=== PATIENT | male | born 1990 | race Two or more races ===

== ENCOUNTER 2016-10-19 10:44 | Observation (INO) | payer MEDICAID ==
[~2016-10-19] VITALS: Ht 175.3 cm; Wt 72.6 kg
[2016-10-19 11:50] LABS: Basophils # (auto) 0 uL; Basophils % (auto) 0.6 % (0.0-2.0); Eosinophils # (auto) 0.1 uL; Eosinophils % (auto) 1.5 % (0.0-7.0); Hematocrit 43.5 % (41.0-53.0); Hemoglobin 14.7 g/dL (13.5-17.5); Lymphocytes # (auto) 1.4 uL; Lymphocytes % (auto) 19.9 % (10.0-50.0); Mean Corpuscular Hemoglobin 30.6 pg (28.0-32.0); Mean Corpuscular Hgb Conc. 33.7 g/dL (32.0-36.0); Mean Corpuscular Volume 90.7 fL (80.0-100.0); Mean Platelet Volume 8.3 fL (7.4-10.4); Monocytes # (auto) 0.3 uL; Monocytes % (auto) 3.6 % (0.0-12.0); Neutrophils # (auto) 5.1 uL; Neutrophils % (auto) 74.4 % (37.0-80.0); Platelet Count (auto) 332 10^3/uL (140-450); White Blood Cell 6.9 10^3/uL (4.4-10.8)
[2016-10-19 12:01] LABS: Salicylate < 1.7 mg/dL (2.8-20.0)
[2016-10-19 12:09] LABS: Albumin 3.8 g/dL (3.4-5.0); BUN/Creatinine Ratio 12.2; Bilirubin, Total 0.2 mg/dL (0.2-1.0); Calcium 8.9 mg/dL (8.5-10.1); Potassium 4.4 mmol/L (3.5-5.1); Total Protein 7.8 g/dL (6.4-8.2)
[2016-10-19 12:17] LABS: Urine Bilirubin Negative (Negative); Urine Blood Negative /uL (Negative); Urine Color Yellow (Yellow); Urine Glucose Normal (Normal); Urine Ketone Negative (Negative); Urine Nitrite Negative (Negative); Urine RBC <1 /hpf (0 - 3); Urine Urobilinogen Normal (Negative)
[2016-10-19 12:23] LABS: Acetaminophen 58.7 ug/mL (10-30)
[2016-10-19] MEDS ORDERED: ACETYLCYSTEINE 200MG/ML IV SOL 10,900 MG in D5W 5% 250 ML IV ONE (13:00)
[2016-10-19] MEDS ORDERED: ACETYLCYSTEINE 200MG/ML IV SOL 3,600 MG in D5W 5% 500 ML IV ONE (14:00)
[2016-10-19 16:54] LABS: Albumin 3.5 g/dL (3.4-5.0); Bilirubin, Direct 0.1 mg/dL (0-0.2); Bilirubin, Total 0.3 mg/dL (0.2-1.0); Total Protein 7.3 g/dL (6.4-8.2)
[2016-10-19 17:15] LABS: INR 1.11 (0.9-1.15); Prothrombin Time 11.4 sec (9.37-12.3)
[2016-10-19] MEDS ORDERED: ACETYLCYSTEINE 200MG/ML IV SOL 7,300 MG in D5W 5% 1,000 ML IV SCH (18:00)
[2016-10-20] MEDS: ACETYLCYSTEINE 200MG/ML IV SOL 7,300 MG in D5W 5% 1,000 ML IV SCH (10:16)
[2016-10-21] MEDS ORDERED: ACETYLCYSTEINE 200MG/ML IV SOLN 30ML IV ONE (02:47)
[2016-10-21] MEDS: ACETYLCYSTEINE 200MG/ML IV SOL 7,300 MG in D5W 5% 1,000 ML IV SCH (03:05)
[2016-10-21 09:04] LABS: INR 1.12 (0.9-1.15); Prothrombin Time 11.5 sec (9.37-12.3)
[2016-10-21 09:14] LABS: Albumin 3.7 g/dL (3.4-5.0); Bilirubin, Direct 0.1 mg/dL (0-0.2); Bilirubin, Total 0.3 mg/dL (0.2-1.0); Total Protein 7.7 g/dL (6.4-8.2)
[2016-10-23 07:49] VITALS: BP 138/77
== END 2016-10-23 08:43 | disposition home or self-care (01) | DRG 812 ==
LOC: EDBD 10:44 → EDUNIT# 10:44 → ER 10:45 → OVERFLOW 12:20 → ER 10-23 08:43
PROVIDERS: ADMIT Emergency Medicine; ATTEND Emergency Medicine
DX: T39.1X2A Poisoning by 4-Aminophenol derivatives, intentional self-harm, initial encounter (principal); G92 Toxic encephalopathy; Y92.89 Other specified places as the place of occurrence of the external cause; F10.120 Alcohol abuse with intoxication, uncomplicated; F19.10 Other psychoactive substance abuse, uncomplicated; F32.1 Major depressive disorder, single episode, moderate
CPT/HCPCS: 36415; 80053; 80076; 80320; 80329; 81001; 85025; 85610; 93005; 96365; 96366; 99285; G0378; G0434; J0132; J7060; J7070

== ENCOUNTER 2017-06-16 20:29 | Emergency (ER) | payer MEDICAID ==
[~2017-06-16] VITALS: Ht 175.3 cm; Wt 77.1 kg
[2017-06-16 20:41] VITALS: BP 165/91
== END 2017-06-16 23:49 | disposition left against medical advice (07) ==
LOC: ER 20:29
DX: R07.9 Chest pain, unspecified (principal); Z53.21 Procedure and treatment not carried out due to patient leaving prior to being seen by health care provider

== ENCOUNTER 2017-06-17 15:21 | Emergency (ER) | payer MEDICAID ==
[~2017-06-17] VITALS: Ht 175.3 cm; Wt 79.4 kg
[2017-06-17 17:18] VITALS: BP 135/80
== END 2017-06-17 17:31 | disposition home or self-care (01) ==
LOC: ER 15:21
DX: J20.9 Acute bronchitis, unspecified (principal); F17.210 Nicotine dependence, cigarettes, uncomplicated; F41.9 Anxiety disorder, unspecified; R07.9 Chest pain, unspecified

== ENCOUNTER 2017-06-23 19:39 | Emergency (ER) | payer MEDICAID ==
[~2017-06-23] VITALS: Ht 175.3 cm; Wt 79.4 kg
[2017-06-23 20:05] VITALS: BP 144/86
== END 2017-06-23 21:45 | disposition home or self-care (01) ==
LOC: ER 19:39
DX: R09.81 Nasal congestion (principal); F17.210 Nicotine dependence, cigarettes, uncomplicated; R07.9 Chest pain, unspecified; Z01.89 Encounter for other specified special examinations
CPT/HCPCS: 71010; 93005

== ENCOUNTER 2017-12-20 19:59 | Emergency (ER) | payer SELFPAY ==
[~2017-12-20] VITALS: Ht 175.3 cm; Wt 79.4 kg
[2017-12-20 20:04] VITALS: BP 132/72
== END 2017-12-20 23:35 | disposition left against medical advice (07) ==
LOC: EDBD 19:59 → ER 20:04
DX: R10.9 Unspecified abdominal pain (principal); R51 Headache; Z53.21 Procedure and treatment not carried out due to patient leaving prior to being seen by health care provider
CPT/HCPCS: 70450; 72125; 73502

== ENCOUNTER 2019-03-13 18:07 | Emergency (ER) | payer MEDICAID, OTHER ==
[~2019-03-13] VITALS: Ht 175.3 cm; Wt 81.2 kg
[2019-03-13 18:13] VITALS: BP 155/89
[2019-03-13] MEDS ORDERED: methylPREDNISolone SOD SUCC 125 MG/2 ML VL IM ONE (19:15)
[2019-03-13] MEDS ORDERED: cefTRIAXone SOD 1,000 MG VL IM ONE (19:15)
== END 2019-03-13 20:28 | disposition home or self-care (01) ==
LOC: ER 18:10
DX: L02.31 Cutaneous abscess of buttock (principal); F41.9 Anxiety disorder, unspecified; F17.200 Nicotine dependence, unspecified, uncomplicated
CPT/HCPCS: 96372; 99283; J0696; J2930

== ENCOUNTER 2020-02-03 10:29 | Emergency (ER) | payer OTHER ==
[~2020-02-03] VITALS: Ht 172.7 cm; Wt 72.6 kg
[2020-02-03 11:01] VITALS: BP 147/91
[2020-02-03] MEDS ORDERED: ACETAMINOPHEN/CODEINE#3 (300/30mg) TAB PO ONE (11:15)
[2020-02-03 11:20] LABS: Basophils # (auto) 0 10 ^3/uL (0-0.2); Basophils % (auto) 0.3 % (0.0-2.0); Eosinophils # (auto) 0.2 10 ^3/uL (0-0.8); Eosinophils % (auto) 1.6 % (0.0-7.0); Hematocrit 42.6 % (41.0-53.0); Hemoglobin 14.3 g/dL (13.5-17.5); Lymphocytes # (auto) 1.3 10 ^3/uL (0.4-5.4); Lymphocytes % (auto) 12.8 % (10.0-50.0); Mean Corpuscular Hemoglobin 30.7 pg (28.0-32.0); Mean Corpuscular Hgb Conc. 33.6 g/dL (32.0-36.0); Mean Corpuscular Volume 91.4 fL (80.0-100.0); Monocytes % (auto) 9.9 % (0.0-12.0); Neutrophils # (auto) 7.7 10 ^3/uL (1.6-8.6); Neutrophils % (auto) 75.4 % (37.0-80.0); Nucleated Red Blood Cells % 0.1 %; Platelet Count (auto) 254 10^3/uL (140-450); Red Blood Cells 4.66 10^6/uL (4.5-5.90); Red Cell Distribution Width 13.4 % (11.8-14.3); White Blood Cell 10.3 10^3/uL (4.4-10.8)
[2020-02-03 11:43] LABS: Albumin 3.7 g/dL (3.4-5.0); BUN/Creatinine Ratio 20.2; Calcium 8.7 mg/dL (8.5-10.1); Potassium 3.8 mmol/L (3.5-5.1)
[2020-02-03 11:46] LABS: Bilirubin, Total 0.6 mg/dL (0.2-1.0); Total Protein 7.4 g/dL (6.4-8.2)
[2020-02-03] MEDS ORDERED: cefTRIAXone SOD 1,000 MG VL IM ONE (12:00)
== END 2020-02-03 12:45 | disposition home or self-care (01) ==
LOC: ER 10:29
DX: L03.012 Cellulitis of left finger (principal); F17.210 Nicotine dependence, cigarettes, uncomplicated; F12.10 Cannabis abuse, uncomplicated; F15.10 Other stimulant abuse, uncomplicated
CPT/HCPCS: 36415; 73200; 80053; 85025; 96372; 99284; J0696

== ENCOUNTER 2022-09-10 00:21 | Emergency (ER) | payer SELFPAY | END 2022-09-10 01:41 | disposition left against medical advice (07) | LOC: ER 00:21 | DX: R10.9 Unspecified abdominal pain (principal); Z53.21 Procedure and treatment not carried out due to patient leaving prior to being seen by health care provider ==